=== PATIENT | male | born 1955 | race Caucasian/White ===

== ENCOUNTER 2018-09-10 11:22 | Emergency (ER) | payer OTHER ==
[~2018-09-10] VITALS: Ht 180.3 cm; Wt 81.6 kg
[2018-09-10] MEDS ORDERED: COZAAR50 MG PO (11:33)
[2018-09-10] MEDS ORDERED: ZITHROMAX TRI-500 MG PO (12:40)
[2018-09-10] MEDS ORDERED: IBUPROFEN800 MG PO (12:40)
== END 2018-09-10 13:01 | disposition home or self-care (01) ==
LOC: ER 11:22
DX: H92.02 Otalgia, left ear (principal)